=== PATIENT | female | born 1985 | race Hispanic/Latino ===

== ENCOUNTER 2019-10-06 14:28 | Emergency (ER) | payer SELFPAY ==
[2019-10-06] MEDS ORDERED: KETOROLAC 30 MG/ML INJ ONE (14:54)
[2019-10-06 15:01] LABS: Urine Blood TRACE (NEG); Urine Glucose NEGATIVE (NEG); Urine Protein TRACE (NEG); Urine Specific Gravity 1.025 (1.005-1.030)
[2019-10-06 15:19] LABS: Urine Amorphous Sediment 1+ /HPF (NONE SEEN); Urine Bacteria 20-50 /HPF (<20); Urine Culture Reflex Order REFLEXED; Urine Mucus 1+ /HPF (NONE SEEN); Urine RBC <5 /HPF (NONE SEEN)
--- NOTE | 2019-10-06 15:25 | RAD REPORT ---
EXAM DESCRIPTION: CT - Stone Protocol - 10/06/2019 3:05 pm CLINICAL HISTORY: Abdominal pain. COMPARISON: None. TECHNIQUE: Computed axial tomography of the abdomen pelvis was obtained without oral or IV contrast. Lack of IV and oral contrast limits evaluation of solid organs, bowel, and vessels. Coronal reformat jasiel images were obtained and reviewed. All CT scans are performed using dose optimization technique as appropriate and may include automated exposure control or mA/KV adjustment according to patient size. FINDINGS: A renal calculus is not seen. An ureteral calculus is not noted. A bladder calculus is not present. The liver, spleen, pancreas and adrenals appear grossly normal There is no evidence of diverticulitis. A 15 millimeter calcification within the right ovary IMPRESSION: Negative for a genitourinary calculus 15 millimeter calcification within the right ovary likely benign. Follow up pelvic ultrasound in 6 mo nths recommended for re-evaluation
--- NOTE | 2019-10-06 15:52 | EDPHYS ---
Physician Documentation [facility] Name: Clau Garber Age: 34 yrs Sex: Female : 1985 Arrival Date: 10/06/2019 Time: 14:29 Bed 18 Private MD: ED Physician Bart Odonnell HPI: 10/05 14:59 This 34 yrs old Female presents to ER via Ambulatory with complaints of Back Pain. kb 14:59 The patient complains of pain in the left flank. The pain radiates to the left lower kb quadrant. Onset: The symptoms/episode began/occurred this morning. Modifying factors: The symptoms are alleviated by nothing. the symptoms are aggravated by movement, palpation/percussion. Associated signs and symptoms: The patient has no apparent associated signs or symptoms. Severity of pain: At its worst the pain was moderate in the emergency department the pain is unchanged. The patient has not experienced similar symptoms in the past. The patient has not recently seen a physician. 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 - Social history:: Smoking status: Patient denies any tobacco usage or history of. ROS: 14:57 Constitutional: Negative for fever, chills, and weight loss, Cardiovascular: Negative kb for chest pain, palpitations, and edema, Respiratory: Negative for shortness of breath, cough, wheezing, and pleuritic chest pain, MS/Extremity: Negative for injury and deformity, Skin: Negative for injury, rash, and discoloration, Neuro: Negative for headache, weakness, numbness, tingling, and seizure. 14:57 Abdomen/GI: Positive for abdominal pain, Negative for nausea, vomiting, and diarrhea. 14:57 Back: Positive for pain at rest, pain with movement, of the left low back. Exam: 14:57 Constitutional: This is a well developed, well nourished patient who is awake, alert, kb and in no acute distress. Head/Face: Normocephalic, atraumatic. Neck: Trachea midline, no thyromegaly or masses palpated, and no cervical lymphadenopathy. Supple, full range of motion without nuchal rigidity, or vertebral point tenderness. No Meningismus. Chest/axilla: Normal chest wall appearance and motion. Nontender with no deformity. No lesions are appreciated. Cardiovascular: Regular rate and rhythm with a normal S1 and S2. No gallops, murmurs, or rubs. Normal PMI, no JVD. No pulse deficits. Respiratory: Lungs have equal breath sounds bilaterally, clear to auscultation and percussion. No rales, rhonchi or wheezes noted. No increased work of breathing, no retractions or nasal flaring. Skin: Warm, dry with normal turgor. Normal color with no rashes, no lesions, and no evidence of cellulitis. MS/ Extremity: Pulses equal, no cyanosis. Neurovascular intact. Full, normal range of motion. Neuro: Awake and alert, GCS 15, oriented to person, place, time, and situation. Cranial nerves II-XII grossly intact. Motor strength 5/5 in all extremities. Sensory grossly intact. Cerebellar exam normal. Normal gait. 14:57 Abdomen/GI: Inspection: abdomen appears normal, Bowel sounds: normal, in all quadrants, Palpation: soft, in all quadrants, moderate abdominal tenderness, in the left lower quadrant. 14:57 Back: CVA tenderness, that is mild, is noted on the left. Vital Signs: 14:36 BP 119 / 87; Pulse 73; Resp 22; Temp 98.2; Pulse Ox 99% ; Weight 88.45 kg; Height 5 ft. sv 7 in. (170.18 cm); 15:34 Pain 6/10; ca1 15:35 BP 108 / 72; Pulse 71; Resp 18 S; Pulse Ox 100% on R/A; Pain 6/10; ca1 14:36 Body Mass Index 30.54 (88.45 kg, 170.18 cm) sv MDM: 14:40 Patient medically screened. kb 14:58 Data reviewed: vital signs, nurses notes. Data interpreted: Pulse oximetry: on room air kb is 99 %. Interpretation: normal. Counseling: I had a detailed discussion with the patient and/or guardian regarding: the historical points, exam findings, and any diagnostic results supporting the discharge/admit diagnosis, lab results, radiology results, the need for outpatient follow up, a family practitioner, to return to the emergency department if symptoms worsen or persist or if there are any questions or concerns that arise at home. 10/05 14:56 Order name: Urine Dipstick--Ancillary (enter results); Complete Time: 15:05 bd 10/05 14:56 Order name: Urine --Ancillary (enter results); Complete Time: 15:05 bd 10/05 14:48 Order name: CT Stone Protocol; Complete Time: 15:43 kb 10/05 14:57 Order name: Urine Microscopic Only; Complete Time: 15:21 kb 10/05 15:21 Order name: Urine Culture [facility] 10/05 14:37 Order name: Urine Dipstick-Ancillary (obtain specimen); Complete Time: 14:50 kb 10/05 14:48 Order name: Urine Test (obtain specimen); Complete Time: 14:50 kb Administered Medications: 14:55 Drug: TORadol 30 mg Route: IM; Site: left gluteus; ca1 15:34 Follow up: Pain 6/10 Adult; Response: No adverse reaction; Pain is decreased ca1 16:13 Drug: predniSONE 60 mg Route: PO; ca1 16:14 Follow up: Response: Medication administered at discharge. ca1 Disposition: 17:39 Co-signature as Attending Physician, Bart Odonnell MD I agree with the assessment and kdr plan of care. Disposition: 10/06/19 15:51 Discharged to Home. Impression: Urinary tract infection, site not specified, Low back pain. - Condition is Stable. - Discharge Instructions: Urinary Tract Infection, Adult, [id number], Back Pain, Adult, [id number]. - Prescriptions for Macrobid 100 mg Oral Capsule - take 1 capsule by ORAL route every 12 hours for 10 days; 20 capsule. Cyclobenzaprine 10 mg Oral Tablet - take 1 tablet by ORAL route every 8 hours As needed; 21 tablet. - Medication Reconciliation Form, Thank You Letter, Antibiotic Education, Prescription Opioid Use form. - Follow up: Emergency Department; When: As needed; Reason: Worsening of condition. Follow up: Private Physician; When: 2 - 3 days; Reason: Recheck today's complaints, Continuance of care, Re-evaluation by your physician. Signatures: Dispatcher [facility] Re De Jesus FNP-C FNP-Ckb Verde, Stephanie, RN RN Bart Beltrán MD MD [facility] Amy Roche RN RN ca1 Corrections: (The following items were deleted from the chart) 16:15 15:51 10/06/2019 15:51 Discharged to Home. Impression: Urinary tract infection, site ca1 not specified; Low back pain. Condition is Stable. Forms are Medication Reconciliation Form, Thank You Letter, Antibiotic Education, Prescription Opioid Use. Follow up: Emergency Department; When: As needed; Reason: Worsening of condition. Follow up: Private Physician; When: 2 - 3 days; Reason: Recheck today's complaints, Continuance of care, Re-evaluation by your physician. kb
--- NOTE | 2019-10-06 15:52 | ER ---
Nurse's Notes [facility] Name: Clau Garber Age: 34 yrs Sex: Female : 1985 Arrival Date: 10/06/2019 Time: 14:29 Bed 18 Private MD: Diagnosis: Urinary tract infection, site not specified;Low back pain Presentation: 10/05 14:34 Chief complaint: Patient states: left mid/low back pain with radiation to the LLQ sv started this morning. Coronavirus screen: Patient denies a cough. Patient denies shortness of breath or difficulty breathing. Patient denies measured and/or subjective temperature greater than 100.4F prior to today's visit. Patient denies travel on a cruise ship or to a country the [facility] currently lists as an affected area. Patient denies contact with known and/or suspected case of COVID-19. Ebola Screen: No symptoms or risks identified at this time. Risk Assessment: Do you want to hurt yourself or someone else? Patient reports no desire to harm self or others. Onset of symptoms was October 06, 2019. 14:34 Method Of Arrival: Ambulatory sv 14:34 Acuity: RUSSELL 3 sv 14:36 Care prior to arrival: Medication(s) given: Tylenol, taken this morning at 1000. sv 14:36 Initial Sepsis Screen: Does the patient meet any 2 criteria? No. Patient's initial sv sepsis screen is negative. Does the patient have a suspected source of infection? No. Patient's initial sepsis screen is negative. Triage Assessment: 14:38 General: Appears in no apparent distress. uncomfortable, Behavior is calm, cooperative, sv appropriate for age. Pain: Complains of pain in back Pain radiates to left lower quadrant. Neuro: Level of Consciousness is awake, alert, obeys commands, Gait is steady. Respiratory: Respiratory effort is even, unlabored. 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 - Social history:: Smoking status: Patient denies any tobacco usage or history of. Screenin:50 Abuse screen: Denies threats or abuse. Denies injuries from another. Nutritional ca1 screening: No deficits noted. Tuberculosis screening: No symptoms or risk factors identified. Fall Risk None identified. Assessment: 14:57 General: Appears in no apparent distress. comfortable, Behavior is calm, appropriate ca1 for age. Pain: Complains of pain in left low back and left lower quadrant Pain currently is 8 out of 10 on a pain scale. Neuro: Level of Consciousness is awake, alert, obeys commands, Oriented to person, place, time, situation. Cardiovascular: Heart tones S1 S2 present Capillary refill < 3 seconds Patient's skin is warm and dry. Respiratory: Airway is patent Respiratory effort is even, unlabored, Respiratory pattern is regular, symmetrical, Breath sounds are clear bilaterally. 14:59 GI: Abdomen is round non-distended, Bowel sounds present X 4 quads. Abd is soft and non ca1 tender X 4 quads. : No signs and/or symptoms were reported regarding the genitourinary system. Urine is clear. EENT: No signs and/or symptoms were reported regarding the EENT system. Derm: Skin is intact, is healthy with good turgor, Skin is pink, warm \T\ dry. Musculoskeletal: Circulation, motion, and sensation intact. Capillary refill < 3 seconds. 15:35 Reassessment: Patient appears in no apparent distress at this time. Patient is alert, ca1 oriented x 3, equal unlabored respirations, skin warm/dry/pink. Patient states feeling better. 16:10 Reassessment: Patient appears in no apparent distress at this time. Patient is alert, ca1 oriented x 3, equal unlabored respirations, skin warm/dry/pink. Vital Signs: 14:36 BP 119 / 87; Pulse 73; Resp 22; Temp 98.2; Pulse Ox 99% ; Weight 88.45 kg; Height 5 ft. sv 7 in. (170.18 cm); 15:34 Pain 6/10; ca1 15:35 BP 108 / 72; Pulse 71; Resp 18 S; Pulse Ox 100% on R/A; Pain 6/10; ca1 14:36 Body Mass Index 30.54 (88.45 kg, 170.18 cm) sv ED Course: 14:29 Patient arrived in ED. ag5 14:33 Arm band placed on. sv 14:35 Triage completed. sv 14:36 Re De Jesus FNP-C is [facility]. kb 14:36 Bart Odonnell MD is Attending Physician. kb 14:40 Amy Roche, RN is Primary Nurse. ca1 14:50 Patient has correct armband on for positive identification. Pulse ox on. NIBP on. ca1 14:50 No provider procedures requiring assistance completed. Patient did not have IV access ca1 during this emergency room visit. 15:05 CT Stone Protocol In Process Unspecified. EDMS 15:36 Amy Roche RN is Primary Nurse. ca1 Administered Medications: 14:55 Drug: TORadol 30 mg Route: IM; Site: left gluteus; ca1 15:34 Follow up: Pain 6/10 Adult; Response: No adverse reaction; Pain is decreased ca1 16:13 Drug: predniSONE 60 mg Route: PO; ca1 16:14 Follow up: Response: Medication administered at discharge. ca1 Outcome: 15:51 Discharge ordered by MD. kb 16:15 Discharged to home ambulatory. ca1 16:15 Condition: stable 16:15 Discharge instructions given to patient, Instructed on discharge instructions, follow up and referral plans. medication usage, Demonstrated understanding of instructions, follow-up care, medications, Prescriptions given X 2. 16:15 Patient left the ED. ca1 Signatures: Dispatcher [employer] EDMS Re De Jesus FNP-C FNP-Dixie Berkowitz RN RN Amy Roche RN RN ca1 Mar Moses ag5 Corrections: (The following items were deleted from the chart) 14:38 14:36 Pulse 73bpm; Resp 22bpm; Pulse Ox 99%; Temp 98.2F; 88.45 kg; Height 5 ft. 7 in.; sv BMI: 30.5; sv 15:00 14:57 Respiratory: Airway is patent Respiratory effort is even, unlabored, Respiratory ca1 pattern is regular, symmetrical, Breath sounds are clear bilaterally. ca1
[2019-10-06] MEDS ORDERED: predniSONE 20 MG TAB ONE (16:15)
[2019-10-06 16:22] VITALS: TEMP 98.2
[2019-10-06 16:24] VITALS: BP 108/72; O2SAT 100
== END 2019-10-06 16:15 | disposition home or self-care (01) ==
LOC: ER 14:28
DX: N39.0 Urinary tract infection, site not specified (principal); Z98.82 Breast implant status
CPT/HCPCS: 74176; 76377; 81003; 81015; 81025; 87086; 87088; 96372; 99284; J7512